=== PATIENT | female | born 1940 | race Hispanic/Latino ===

== ENCOUNTER 2017-05-13 00:21 | Inpatient (IN) | payer MEDICARE ==
[~2017-05-13] VITALS: Ht 170.2 cm; Wt 89.6 kg
[~2017-05-13 00:21] MED LIST: ALBU1.252 IH; ALEN70TA47 PO; ASPI-555 PO; BECL10.62 IH; CIPR-245 PO; DONE5TAB26 PO; FERR-82 PO; FURO20TA4 PO; IPRA4AER IH; LETR2.5T6 PO; PARO10TA71 PO; POTA10TA14 PO; PRAM0.258 PO; PRAV10TA39 PO; UMEC1DIS IH; VARE1TAB22 PO
[2017-05-13] MEDS ORDERED: FUROSEMIDE 10 MG/ML 4ML VIAL ONE (00:44)
[2017-05-13 00:55] LABS: BASOPHILS % (AUTO) 0.6 % (0.0-5.0); EOSINOPHILS % (AUTO) 4.3 % (0.0-8.0); HEMATOCRIT 30.9 % (36-48); LYMPHOCYTES % (AUTO) 19.9 % (21.0-51.0); MEAN CORPUSCULAR HEMOGLOBIN 30.7 pg (27.0-33.0); MEAN CORPUSCULAR HGB CONC 33.1 g/dL (32.0-36.0); MEAN CORPUSCULAR VOLUME 92.9 fL (79-99); MONOCYTES % (AUTO) 8.5 % (3.0-13.0); NEUTROPHILS % (AUTO) 66.7 % (40.0-77.0); PLATELET COUNT (AUTO) 193 K/uL (130-400); RED BLOOD CELL COUNT(AUTO) 3.33 MIL/uL (4.00-5.50); RED CELL DISTRIBUTION WIDTH 14.8 % (11.0-15.5); WHITE BLOOD COUNT (AUTO) 9.9 K/uL (4.8-10.8)
[2017-05-13 01:03] LABS: CREATININE 0.8 mg/dL (0.5-1.5); POTASSIUM 3.9 mmol/L (3.5-5.1)
[2017-05-13 01:16] LABS: ALBUMIN 2.9 g/dL (3.5-5.0); BILIRUBIN,TOTAL 0.3 mg/dL (0.2-1.0); INR 0.89 (0.85-1.15); PARTIAL THROMBOPLASTIN TIME 29.2 SEC (26.3-35.5); PROTHROMBIN TIME 9.4 SEC (9.6-11.6); TOTAL PROTEIN, SERUM 6.8 g/dL (6.0-8.3)
[2017-05-13 02:06] LABS: APPEARANCE,URINE Clear (CLEAR); BILIRUBIN,URINE Negative (NEGATIVE); COLOR,URINE Yellow (YELLOW); GLUCOSE, URINE (UA) Negative (NEGATIVE); KETONES,URINE Negative (NEGATIVE); LEUKOCYTE ESTERASE ,URINE Small (NEGATIVE); NITRATE,URINE Positive (NEGATIVE); OCCULT BLOOD,URINE Negative (NEGATIVE); PROTEIN,URINE Negative (NEGATIVE); UROBILINOGEN,URINE 0.2 mg/dL (0.2-1.0)
[2017-05-13 02:19] LABS: BACTERIA,URINE Few /HPF (None Seen); RBC,URINE None Seen /HPF (0-1); SQUAMOUS EPITHELIAL CELL,UR Rare /LPF (0-2); WBC,URINE 0-1 /HPF (0-1)
[2017-05-13] MEDS ORDERED: VANCOMYCIN 1GM+NS 250ML 250 ML IV ONE (03:56)
[2017-05-13 04:50] VITALS: BP 147/76
[2017-05-13] MEDS ORDERED: HYDRALAZINE HCL 20 MG/ML VIAL IV PRN (06:45)
[2017-05-13] MEDS ORDERED: POTASSIUM CHLORIDE 10% ELIXIR 20 MEQ/15 ML UDCUP PO PRN (06:45)
[2017-05-13] MEDS ORDERED: ACETAMINOPHEN 325 MG TAB PO PRN ×2 (06:45)
[2017-05-13] MEDS ORDERED: ONDANSETRON HCL 4 MG/2 ML VIAL IV PRN (06:45)
[2017-05-13] MEDS ORDERED: POTASSIUM CHLORIDE 20MEQ/100ML 100 ML IV PRN (06:45)
[2017-05-13] MEDS ORDERED: LIDOCAINE HCL-MPF 1% 2ML VIAL IVP PRN (06:45)
[2017-05-13] MEDS ORDERED: NITROGLYCERIN 0.4 MG SL TAB SL PRN (06:45)
[2017-05-13] MEDS ORDERED: POTASSIUM CHLORIDE 20 MEQ ERTAB PO PRN (06:45)
[2017-05-13] MEDS ORDERED: GUAIFENESIN-DM 200/20 MG 10 ML PO PRN (06:45)
[2017-05-13] MEDS ORDERED: VANCOMYCIN 1GM+NS 250ML 250 ML IV SCH ×2 (06:45→10:00)
[2017-05-13] MEDS ORDERED: CEFTRIAXONE 1GM/D5W 50ML 50 ML IV SCH (06:45)
[2017-05-13] MEDS: INSULIN HUMULIN R 100 UNIT/ML 3ML SQ SCH ×4 (07:30→22:06)
[2017-05-13 08:00] VITALS: BP 133/65
[2017-05-13] MEDS: FAMOTIDINE 20MG TAB 20 MG TAB PO SCH ×2 (08:48→21:14)
[2017-05-13] MEDS: CEFTRIAXONE SODIUM 1 GM IVP SCH (08:59)
[2017-05-13] MEDS ORDERED: ENOXAPARIN SODIUM 40 MG/0.4 ML SYRINGE SQ SCH (09:00)
[2017-05-13] MEDS ORDERED: MORPHINE SULFATE 2 MG/ML 1ML SYG IVP PRN (10:00)
[2017-05-13] MEDS: VANCOMYCIN 1.25 GM in SODIUM CHLORIDE 0.9% 250 ML IV SCH ×2 (10:00→22:03)
[2017-05-13] MEDS ORDERED: VANCOMYCIN PROTOCOL PER PHARMACY IV PRN (10:00)
[2017-05-13] MEDS ORDERED: COMPOUND IV REFRIGERATED 1 EACH IVSOLN MISC PRN (10:15)
[2017-05-13] MEDS ORDERED: VANCOMYCIN PROTOCOL PER PHARMACY IV SCH (10:15)
[2017-05-13] MEDS: IPRATROPIUM/ALBUTEROL SULFATE 3 ML SOLUTION IH SCH ×3 (11:23→23:32)
[2017-05-13 11:41] VITALS: BP 152/85
[2017-05-13] MEDS ORDERED: IOPAMIDOL-370 75 ML VIAL IV ONE (11:41)
[2017-05-13] MEDS: FUROSEMIDE 20 MG TABLET PO SCH (11:59)
[2017-05-13] MEDS ORDERED: IPRATROPIUM/ALBUTEROL SULFATE 3 ML SOLUTION IH SCH (12:00)
[2017-05-13] MEDS: ALBUTEROL SULFATE 0.083% 2.5 MG/3 ML INH IH SCH (12:00)
[2017-05-13] MEDS ORDERED: IOPAMIDOL-370 100 ML VIAL IV ONE (15:57)
[2017-05-13 16:00] VITALS: BP 126/71
[2017-05-13] MEDS: BUDESONIDE 0.5 MG/2 ML INH IH SCH (18:54)
[2017-05-13 19:52] VITALS: BP 137/71
[2017-05-13] MEDS: MORPHINE SULFATE 4 MG/1ML SYG IVP PRN (22:07)
[2017-05-13] MEDS ORDERED: OXYMETAZOLINE HCL SPRAY 15 ML BOTTLE EN SCH (22:30)
[2017-05-13] MEDS ORDERED: OXYMETAZOLINE HCL SPRAY 15 ML BOTTLE ONE (23:05)
[2017-05-14] VITALS (7 sets, daily range): BP systolic 117–151; BP diastolic 60–75
[2017-05-14 05:49] LABS: MEAN CORPUSCULAR HEMOGLOBIN 30.3 pg (27.0-33.0); MEAN CORPUSCULAR VOLUME 91.9 fL (79-99); PLATELET COUNT (AUTO) 171 K/uL (130-400); RED BLOOD CELL COUNT(AUTO) 3.27 MIL/uL (4.00-5.50); RED CELL DISTRIBUTION WIDTH 15.4 % (11.0-15.5); WHITE BLOOD COUNT (AUTO) 9.5 K/uL (4.8-10.8)
[2017-05-14] MEDS: ALBUTEROL SULFATE 0.083% 2.5 MG/3 ML INH IH SCH ×3 (06:00→18:00)
[2017-05-14 06:06] LABS: CARBON DIOXIDE 41 mmol/L (21-32); CHLORIDE 102 mmol/L (101-111); CREATINE KINASE MB 0.7 ng/mL (0.5-3.6); CREATINE KINASE, TOTAL 44 U/L (21-232); CREATININE 0.7 mg/dL (0.5-1.5); GLOMERULAR FILTR. RATE CALC 87 mL/min (>60); GLUCOSE,RANDOM 53 mg/dL (70-105); MYOGLOBIN 56 ng/mL (10-92); POTASSIUM 3.8 mmol/L (3.5-5.1); SODIUM SERUM 144 mmol/L (136-145); TROPONIN I < 0.04 ng/mL (0.00-0.06); UREA NITROGEN, BLOOD 18 mg/dL (7-18)
[2017-05-14] MEDS: IPRATROPIUM/ALBUTEROL SULFATE 3 ML SOLUTION IH SCH ×3 (06:48→19:15)
[2017-05-14] MEDS: BUDESONIDE 0.5 MG/2 ML INH IH SCH ×2 (07:08→20:13)
[2017-05-14] MEDS: INSULIN HUMULIN R 100 UNIT/ML 3ML SQ SCH ×4 (07:22→19:57)
[2017-05-14] MEDS: CEFTRIAXONE SODIUM 1 GM IVP SCH (07:22)
[2017-05-14] MEDS: FUROSEMIDE 20 MG TABLET PO SCH (10:12)
[2017-05-14] MEDS: FAMOTIDINE 20MG TAB 20 MG TAB PO SCH ×2 (10:12→19:48)
[2017-05-14] MEDS: VANCOMYCIN 1.25 GM in SODIUM CHLORIDE 0.9% 250 ML IV SCH ×2 (10:13→23:47)
[2017-05-14] MEDS: ACETAMINOPHEN-CODEINE 300/30MG TAB PO PRN (18:42)
[2017-05-14] MEDS: MORPHINE SULFATE 4 MG/1ML SYG IVP PRN (19:54)
[2017-05-15] MEDS: IPRATROPIUM/ALBUTEROL SULFATE 3 ML SOLUTION IH SCH ×4 (02:05→19:02)
[2017-05-15 03:46] VITALS: BP 128/60
[2017-05-15] MEDS: ALBUTEROL SULFATE 0.083% 2.5 MG/3 ML INH IH SCH ×3 (06:00→18:00)
[2017-05-15] MEDS: BUDESONIDE 0.5 MG/2 ML INH IH SCH ×2 (07:16→19:24)
[2017-05-15 08:00] VITALS: BP 141/70
[2017-05-15] MEDS: CEFTRIAXONE SODIUM 1 GM IVP SCH (09:30)
[2017-05-15] MEDS: VANCOMYCIN 1.25 GM in SODIUM CHLORIDE 0.9% 250 ML IV SCH ×3 (09:31→23:03)
[2017-05-15] MEDS: ENOXAPARIN SODIUM 40 MG/0.4 ML SYRINGE SQ SCH (09:31)
[2017-05-15] MEDS: FAMOTIDINE 20MG TAB 20 MG TAB PO SCH ×2 (09:31→20:33)
[2017-05-15] MEDS: ACETAMINOPHEN-CODEINE 300/30MG TAB PO PRN (09:32)
[2017-05-15] MEDS: FUROSEMIDE 20 MG TABLET PO SCH (09:32)
[2017-05-15] MEDS: INSULIN HUMULIN R 100 UNIT/ML 3ML SQ SCH ×4 (09:33→21:43)
[2017-05-15 11:00] VITALS: BP 118/67
[2017-05-15 16:00] VITALS: BP 120/77
[2017-05-15] MEDS ORDERED: MORPHINE SULFATE 4 MG/1ML SYG IVP PRN (16:00)
[2017-05-15 20:00] VITALS: BP 152/75
[2017-05-15] MEDS: MORPHINE SULFATE 4 MG/1ML SYG IVP PRN (20:36)
[2017-05-16] VITALS: BP 163/76
[2017-05-16] MEDS: MORPHINE SULFATE 4 MG/1ML SYG IVP PRN (00:59)
[2017-05-16] MEDS: ACETAMINOPHEN-CODEINE 300/30MG TAB PO PRN ×2 (02:59→08:27)
[2017-05-16 04:00] VITALS: BP 114/56
[2017-05-16 04:56] LABS: MEAN CORPUSCULAR HGB CONC 34.6 g/dL (32.0-36.0); MEAN CORPUSCULAR VOLUME 92.3 fL (79-99); PLATELET COUNT (AUTO) 150 K/uL (130-400); RED BLOOD CELL COUNT(AUTO) 2.92 MIL/uL (4.00-5.50); RED CELL DISTRIBUTION WIDTH 14.9 % (11.0-15.5); WHITE BLOOD COUNT (AUTO) 8.1 K/uL (4.8-10.8)
[2017-05-16] MEDS: ALBUTEROL SULFATE 0.083% 2.5 MG/3 ML INH IH SCH ×3 (06:00→11:18)
[2017-05-16] MEDS: CEFTRIAXONE SODIUM 1 GM IVP SCH (06:34)
[2017-05-16] MEDS: INSULIN HUMULIN R 100 UNIT/ML 3ML SQ SCH (06:35)
[2017-05-16] MEDS: IPRATROPIUM/ALBUTEROL SULFATE 3 ML SOLUTION IH SCH ×3 (06:45→11:19)
[2017-05-16] MEDS: BUDESONIDE 0.5 MG/2 ML INH IH SCH (06:57)
[2017-05-16 08:00] VITALS: BP 139/94
[2017-05-16] MEDS: FAMOTIDINE 20MG TAB 20 MG TAB PO SCH (08:26)
[2017-05-16] MEDS: FUROSEMIDE 20 MG TABLET PO SCH (08:27)
[2017-05-16] MEDS: ENOXAPARIN SODIUM 40 MG/0.4 ML SYRINGE SQ SCH (08:28)
[2017-05-16 11:00] VITALS: BP 120/57
== END 2017-05-16 13:15 | DRG 603 ==
LOC: EDH 00:21 → 3DH 03:58 → OBSVTOIN 03:58
PROVIDERS: ADMIT Internal Medicine; ATTEND Internal Medicine
DX: L03.115 Cellulitis of right lower limb (principal); J96.10 Chronic respiratory failure, unspecified whether with hypoxia or hypercapnia; E44.0 Moderate protein-calorie malnutrition; N39.0 Urinary tract infection, site not specified; Z99.81 Dependence on supplemental oxygen; L03.116 Cellulitis of left lower limb; F02.80 Dementia in other diseases classified elsewhere, unspecified severity, without behavioral disturbance, psychotic disturbance, mood disturbance, and anxiety; J44.9 Chronic obstructive pulmonary disease, unspecified; E11.9 Type 2 diabetes mellitus without complications; I10 Essential (primary) hypertension; E78.5 Hyperlipidemia, unspecified; Z90.12 Acquired absence of left breast and nipple; Z85.3 Personal history of malignant neoplasm of breast; E66.9 Obesity, unspecified; G30.9 Alzheimer's disease, unspecified; R32 Unspecified urinary incontinence; Z68.30 Body mass index [BMI] 30.0-30.9, adult; Z87.891 Personal history of nicotine dependence
CPT/HCPCS: 36415; 71045; 71275; 80048; 80053; 80202; 81001; 82550; 82553; 82948; 83874; 83880; 84484; 85025; 85027; 85378; 85610; 85651; 85730; 87040; 87804; 93005; 93970; 94640; 94664; A4218; J0696; J1650; J1815; J1940; J2270; J3370; J7030; Q9967

== ENCOUNTER 2017-12-24 20:06 | Inpatient (IN) | payer OTHER, MEDICARE ==
[~2017-12-24] VITALS: Ht 172.7 cm; Wt 83.1 kg
[~2017-12-24 20:06] MED LIST changes: -ALBU1.252 IH; -BECL10.62 IH; -CIPR-245 PO; +LISI40TA4 PO; +METF-444 PO; +albute
[2017-12-24 21:29] LABS: BASOPHILS % (AUTO) 0.7 % (0.0-5.0); EOSINOPHILS % (AUTO) 2.1 % (0.0-8.0); HEMATOCRIT 32.7 % (36-48); LYMPHOCYTES % (AUTO) 15.7 % (21.0-51.0); MEAN CORPUSCULAR HEMOGLOBIN 28.3 pg (27.0-33.0); MEAN CORPUSCULAR HGB CONC 32.6 g/dL (32.0-36.0); MEAN CORPUSCULAR VOLUME 86.7 fL (79-99); MONOCYTES % (AUTO) 8.1 % (3.0-13.0); NEUTROPHILS % (AUTO) 73.4 % (40.0-77.0); PLATELET COUNT (AUTO) 195 K/uL (130-400); RED BLOOD CELL COUNT(AUTO) 3.77 MIL/uL (4.00-5.50); RED CELL DISTRIBUTION WIDTH 16.4 % (11.0-15.5); WHITE BLOOD COUNT (AUTO) 9.3 K/uL (4.8-10.8)
[2017-12-24 21:48] LABS: CREATININE 0.8 mg/dL (0.5-1.5)
[2017-12-24 21:53] LABS: BILIRUBIN,TOTAL 0.5 mg/dL (0.2-1.0)
[2017-12-24] MEDS ORDERED: METHYLPREDNISOLONE SOD SUCC 125MG/2ML VIAL ONE (22:26)
[2017-12-24] MEDS ORDERED: IPRATROPIUM/ALBUTEROL SULFATE 3 ML SOLUTION IH ONE (22:46)
[2017-12-24 23:50] VITALS: BP 126/67
[2017-12-25] MEDS ORDERED: LABETALOL 20 MG/4 ML DISP.SYRIN IV PRN (00:45)
[2017-12-25] MEDS ORDERED: ACETAMINOPHEN 325 MG TAB PO PRN (00:45)
[2017-12-25] MEDS: METHYLPREDNISOLONE SOD SUCC 125MG/2ML VIAL IV SCH ×3 (00:45→16:53)
[2017-12-25 02:17] LABS: APPEARANCE,URINE Clear (CLEAR); BILIRUBIN,URINE Negative (NEGATIVE); GLUCOSE, URINE (UA) Negative (NEGATIVE); KETONES,URINE 15 mg/dL (NEGATIVE); LEUKOCYTE ESTERASE ,URINE Moderate (NEGATIVE); NITRATE,URINE Positive (NEGATIVE); OCCULT BLOOD,URINE Negative (NEGATIVE); PROTEIN,URINE POS 2+ (NEGATIVE)
[2017-12-25 02:24] LABS: COLOR,URINE YELLOW (YELLOW)
[2017-12-25] MEDS: LEVOFLOXACIN 500 MG/D5W 100 ML 100 ML IV SCH (02:27)
[2017-12-25] MEDS: CLINDAMYCIN 600 MG/D5% WATER 50 ML IV SCH ×2 (02:27→09:49)
[2017-12-25 02:46] LABS: BACTERIA,URINE Moderate /HPF (None Seen); MUCUS,URINE Few LPF (None Seen); RBC,URINE 0-1 /HPF (0-1); SQUAMOUS EPITHELIAL CELL,UR Few /HPF (0-2)
[2017-12-25] MEDS: IPRATROPIUM/ALBUTEROL SULFATE 3 ML SOLUTION IH SCH ×6 (03:03→21:30)
[2017-12-25 04:00] VITALS: BP 137/76
[2017-12-25 05:41] LABS: BASOPHILS % (AUTO) 0.3 % (0.0-5.0); HEMATOCRIT 34.9 % (36-48); LYMPHOCYTES % (AUTO) 5.5 % (21.0-51.0); MEAN CORPUSCULAR HEMOGLOBIN 28.2 pg (27.0-33.0); MEAN CORPUSCULAR HGB CONC 32.4 g/dL (32.0-36.0); MEAN CORPUSCULAR VOLUME 87.1 fL (79-99); MONOCYTES % (AUTO) 0.8 % (3.0-13.0); NEUTROPHILS % (AUTO) 93.4 % (40.0-77.0); PLATELET COUNT (AUTO) 197 K/uL (130-400); RED BLOOD CELL COUNT(AUTO) 4.01 MIL/uL (4.00-5.50); RED CELL DISTRIBUTION WIDTH 16.1 % (11.0-15.5); WHITE BLOOD COUNT (AUTO) 7.5 K/uL (4.8-10.8)
[2017-12-25 05:51] LABS: BILIRUBIN,TOTAL 0.5 mg/dL (0.2-1.0); CREATININE 0.9 mg/dL (0.5-1.5); POTASSIUM 4.7 mmol/L (3.5-5.1); TOTAL PROTEIN, SERUM 7.2 g/dL (6.0-8.3)
[2017-12-25 05:56] LABS: HEMOGLOBIN A1C 6.9 % (4.0-6.0)
[2017-12-25 07:00] VITALS: BP 142/71
[2017-12-25] MEDS ORDERED: PNEUMOCOCCAL VACCINE POLYVALENT 0.5 ML/VIAL [PPV] IM SCH (07:15)
[2017-12-25] MEDS: ENOXAPARIN SODIUM 40 MG/0.4 ML SYRINGE SQ SCH (09:49)
[2017-12-25] MEDS: PANTOPRAZOLE SODIUM 40 MG TABLET.DR PO SCH (09:49)
[2017-12-25 11:00] VITALS: BP 125/68
[2017-12-25] MEDS ORDERED: GLUCAGON 1MG KIT 1 MG ML IM PRN (13:00)
[2017-12-25] MEDS ORDERED: DEXTROSE 50%-WATER 50 ML DISP.SYRIN IV PRN (13:00)
[2017-12-25 16:00] VITALS: BP 115/65
[2017-12-25] MEDS ORDERED: ALPRAZOLAM 0.5 MG TABLET PO PRN (17:00)
[2017-12-25] MEDS: INSULIN HUMULIN R 100 UNIT/ML 3ML SQ SCH ×3 (17:02→21:44)
[2017-12-25] MEDS ORDERED: VANCOMYCIN PROTOCOL PER PHARMACY IV SCH (17:45)
[2017-12-25] MEDS: ZOSYN 3.375GM+NS 50ML 50 ML IV SCH (18:26)
[2017-12-25 19:00] VITALS: BP 121/71
[2017-12-25] MEDS ORDERED: COMPOUND IV REFRIGERATED 1 EACH IVSOLN MISC PRN (20:30)
[2017-12-25] MEDS: VARENICLINE TARTRATE 1 MG PO SCH (21:00)
[2017-12-25] MEDS: **HM**(Pravastatin Sodium 10 MG PO SCH (21:00)
[2017-12-25] MEDS: DONEPEZIL HCL 5 MG TAB PO SCH (21:39)
[2017-12-25] MEDS: VANCOMYCIN 1.25 GM in SODIUM CHLORIDE 0.9% 250 ML IV SCH (21:39)
[2017-12-25] MEDS: OSELTAMIVIR PHOSPHATE 75 MG CAP PO SCH (21:39)
[2017-12-25] MEDS: PRAMIPEXOLE DI-HCL 0.25 MG TABLET PO SCH (21:39)
[2017-12-25] MEDS: ASPIRIN 81MG TAB.CHEW PO SCH (21:40)
[2017-12-26] VITALS: BP 119/65
[2017-12-26] MEDS: LEVOFLOXACIN 500 MG/D5W 100 ML 100 ML IV SCH (00:36)
[2017-12-26] MEDS: METHYLPREDNISOLONE SOD SUCC 125MG/2ML VIAL IV SCH ×3 (00:38→17:09)
[2017-12-26] MEDS: ZOSYN 3.375GM+NS 50ML 50 ML IV SCH ×3 (01:52→17:09)
[2017-12-26] MEDS: IPRATROPIUM/ALBUTEROL SULFATE 3 ML SOLUTION IH SCH ×6 (03:55→21:04)
[2017-12-26 04:00] VITALS: BP 143/73
[2017-12-26 04:37] LABS: ABG BASE EXCESS 7.2 mmol/L (-2.0-3.0); ABG OXYGEN SATURATION 74.1 % (95.0-99.0); ABG PCO2 51 mmHg (32-45)
[2017-12-26 05:44] LABS: ABG BASE EXCESS 4.5 mmol/L (-2.0-3.0); ABG HCO3 30.9 mmol/L (21.0-28.0); ABG OXYGEN SATURATION 92.7 % (95.0-99.0); ABG PCO2 53 mmHg (32-45)
[2017-12-26 05:55] LABS: HEMATOCRIT 31.5 % (36-48); MEAN CORPUSCULAR HEMOGLOBIN 28.2 pg (27.0-33.0); MEAN CORPUSCULAR HGB CONC 32.4 g/dL (32.0-36.0); MEAN CORPUSCULAR VOLUME 87.2 fL (79-99); PLATELET COUNT (AUTO) 193 K/uL (130-400); RED BLOOD CELL COUNT(AUTO) 3.61 MIL/uL (4.00-5.50); RED CELL DISTRIBUTION WIDTH 16.5 % (11.0-15.5); WHITE BLOOD COUNT (AUTO) 8.1 K/uL (4.8-10.8)
[2017-12-26] MEDS: INSULIN HUMULIN R 100 UNIT/ML 3ML SQ SCH ×6 (06:11→20:29)
[2017-12-26 06:20] LABS: PHOSPHORUS 3.4 mg/dL (2.5-4.9); POTASSIUM 4.4 mmol/L (3.5-5.1); THYROID STIMULATING HORMONE 0.54 uIU/mL (0.36-3.74)
[2017-12-26 07:00] VITALS: BP 157/85
[2017-12-26] MEDS: VARENICLINE TARTRATE 1 MG PO SCH ×2 (09:00→20:29)
[2017-12-26] MEDS: LETROZOLE 2.5 MG PO SCH (09:00)
[2017-12-26] MEDS: VANCOMYCIN 1.25 GM in SODIUM CHLORIDE 0.9% 250 ML IV SCH ×2 (09:45→20:34)
[2017-12-26] MEDS: PANTOPRAZOLE SODIUM 40 MG TABLET.DR PO SCH (09:46)
[2017-12-26] MEDS: LISINOPRIL 40 MG TABLET PO SCH (09:46)
[2017-12-26] MEDS: FERROUS SULFATE 325 MG TABLET.DR PO SCH (09:46)
[2017-12-26] MEDS: POTASSIUM CHLORIDE 10 MEQ/TAB.SA PO SCH (09:47)
[2017-12-26] MEDS: OSELTAMIVIR PHOSPHATE 75 MG CAP PO SCH ×2 (09:47→20:27)
[2017-12-26] MEDS: PAROXETINE HCL 20 MG TABLET PO SCH (09:48)
[2017-12-26] MEDS: FUROSEMIDE 20 MG TABLET PO SCH (09:48)
[2017-12-26] MEDS: ENOXAPARIN SODIUM 40 MG/0.4 ML SYRINGE SQ SCH (09:49)
[2017-12-26 11:00] VITALS: BP 140/69
[2017-12-26] MEDS: UMECLIDINIUM BRM IH SCH (12:00)
[2017-12-26] MEDS: VILANTEROL TR IH SCH (12:00)
[2017-12-26 16:00] VITALS: BP 119/56
[2017-12-26 19:53] VITALS: BP 130/67
[2017-12-26] MEDS: ASPIRIN 81MG TAB.CHEW PO SCH (20:27)
[2017-12-26] MEDS: DONEPEZIL HCL 5 MG TAB PO SCH (20:27)
[2017-12-26] MEDS: PRAMIPEXOLE DI-HCL 0.25 MG TABLET PO SCH (20:27)
[2017-12-26] MEDS: **HM**(Pravastatin Sodium 10 MG PO SCH (20:29)
[2017-12-27] VITALS: BP 134/68
[2017-12-27] MEDS: METHYLPREDNISOLONE SOD SUCC 125MG/2ML VIAL IV SCH ×2 (00:10→09:32)
[2017-12-27] MEDS: LEVOFLOXACIN 500 MG/D5W 100 ML 100 ML IV SCH (00:10)
[2017-12-27] MEDS: IPRATROPIUM/ALBUTEROL SULFATE 3 ML SOLUTION IH SCH ×4 (01:18→14:12)
[2017-12-27] MEDS: ZOSYN 3.375GM+NS 50ML 50 ML IV SCH ×2 (01:32→09:54)
[2017-12-27 04:00] VITALS: BP 137/67
[2017-12-27 04:30] LABS: HEMATOCRIT 30.7 % (36-48); MEAN CORPUSCULAR HEMOGLOBIN 27.7 pg (27.0-33.0); MEAN CORPUSCULAR HGB CONC 31.6 g/dL (32.0-36.0); MEAN CORPUSCULAR VOLUME 87.5 fL (79-99); PLATELET COUNT (AUTO) 162 K/uL (130-400); RED BLOOD CELL COUNT(AUTO) 3.51 MIL/uL (4.00-5.50); RED CELL DISTRIBUTION WIDTH 16.4 % (11.0-15.5); WHITE BLOOD COUNT (AUTO) 9.2 K/uL (4.8-10.8)
[2017-12-27 04:46] LABS: CREATININE 0.9 mg/dL (0.5-1.5); POTASSIUM 4.6 mmol/L (3.5-5.1)
[2017-12-27] MEDS: INSULIN HUMULIN R 100 UNIT/ML 3ML SQ SCH ×2 (06:16→12:27)
[2017-12-27 08:40] VITALS: BP 99/61
[2017-12-27] MEDS: OSELTAMIVIR PHOSPHATE 75 MG CAP PO SCH (09:00)
[2017-12-27] MEDS: VARENICLINE TARTRATE 1 MG PO SCH (09:00)
[2017-12-27] MEDS: LETROZOLE 2.5 MG PO SCH (09:00)
[2017-12-27] MEDS: LISINOPRIL 40 MG TABLET PO SCH (09:33)
[2017-12-27] MEDS: FERROUS SULFATE 325 MG TABLET.DR PO SCH (09:33)
[2017-12-27] MEDS: FUROSEMIDE 20 MG TABLET PO SCH (09:34)
[2017-12-27] MEDS: POTASSIUM CHLORIDE 10 MEQ/TAB.SA PO SCH (09:34)
[2017-12-27] MEDS: ENOXAPARIN SODIUM 40 MG/0.4 ML SYRINGE SQ SCH (09:36)
[2017-12-27] MEDS: PANTOPRAZOLE SODIUM 40 MG TABLET.DR PO SCH (09:53)
[2017-12-27] MEDS: PAROXETINE HCL 20 MG TABLET PO SCH (09:54)
[2017-12-27] MEDS: VANCOMYCIN 1.25 GM in SODIUM CHLORIDE 0.9% 250 ML IV SCH (09:59)
[2017-12-27] MEDS: VILANTEROL TR IH SCH (12:00)
[2017-12-27] MEDS: UMECLIDINIUM BRM IH SCH (12:00)
[2017-12-27 12:03] VITALS: BP 139/71
[2017-12-27 16:20] VITALS: BP 145/66
[2018-01-01] MEDS ORDERED: ALENDRONATE SODIUM 35 MG TAB PO SCH (09:00)
== END 2017-12-27 17:20 | disposition home or self-care (01) | DRG 602 ==
LOC: EDH 20:06 → EDHIP 22:27 → 3DH 23:11
PROVIDERS: ADMIT Internal Medicine Critical Care Medicine; ATTEND Internal Medicine Critical Care Medicine
DX: L03.115 Cellulitis of right lower limb (principal); J96.21 Acute and chronic respiratory failure with hypoxia; J44.1 Chronic obstructive pulmonary disease with (acute) exacerbation; I50.20 Unspecified systolic (congestive) heart failure; D64.9 Anemia, unspecified; E11.65 Type 2 diabetes mellitus with hyperglycemia; E78.5 Hyperlipidemia, unspecified; F02.80 Dementia in other diseases classified elsewhere, unspecified severity, without behavioral disturbance, psychotic disturbance, mood disturbance, and anxiety; F32.9 Major depressive disorder, single episode, unspecified; F41.9 Anxiety disorder, unspecified; G25.81 Restless legs syndrome; G30.9 Alzheimer's disease, unspecified; I11.0 Hypertensive heart disease with heart failure; I48.91 Unspecified atrial fibrillation; Z79.4 Long term (current) use of insulin; Z99.81 Dependence on supplemental oxygen; Z87.01 Personal history of pneumonia (recurrent); Z85.3 Personal history of malignant neoplasm of breast; Z28.21 Immunization not carried out because of patient refusal; Z82.3 Family history of stroke; Z82.0 Family history of epilepsy and other diseases of the nervous system; Z80.42 Family history of malignant neoplasm of prostate; Z80.3 Family history of malignant neoplasm of breast; Z83.3 Family history of diabetes mellitus; Z82.5 Family history of asthma and other chronic lower respiratory diseases; Z82.49 Family history of ischemic heart disease and other diseases of the circulatory system
CPT/HCPCS: 36415; 36600; 70450; 71045; 80048; 80053; 80202; 81001; 82803; 82948; 83036; 83605; 83735; 84100; 84443; 85025; 85027; 87040; 87070; 87076; 87077; 87088; 87186; 93005; 93926; 93970; 94640; 94664; J1650; J1815; J1956; J2543; J2930; J3370; J3490; J7030

== ENCOUNTER 2018-04-23 08:12 | Emergency (ER) | payer OTHER, MEDICARE ==
[~2018-04-23 08:12] MED LIST changes: +ALEN70TA10 PO; -ALEN70TA47 PO; -IPRA4AER IH; -METF-444 PO; -albute
[2018-04-23] MEDS ORDERED: ALBUTEROL SULFATE 0.083% 2.5 MG/3 ML INH IH ONE (08:31)
[2018-04-23] MEDS ORDERED: METHYLPREDNISOLONE SOD SUCC 125MG/2ML VIAL ONE (08:38)
[2018-04-23 09:04] LABS: BASOPHILS % (AUTO) 0.4 % (0.0-5.0); EOSINOPHILS % (AUTO) 0.6 % (0.0-8.0); HEMATOCRIT 32.7 % (36-48); LYMPHOCYTES % (AUTO) 11.9 % (21.0-51.0); MEAN CORPUSCULAR HEMOGLOBIN 28.9 pg (27.0-33.0); MEAN CORPUSCULAR HGB CONC 32.8 g/dL (32.0-36.0); MEAN CORPUSCULAR VOLUME 88.2 fL (79-99); MONOCYTES % (AUTO) 6.5 % (3.0-13.0); NEUTROPHILS % (AUTO) 80.6 % (40.0-77.0); PLATELET COUNT (AUTO) 168 K/uL (130-400); RED BLOOD CELL COUNT(AUTO) 3.71 MIL/uL (4.00-5.50); RED CELL DISTRIBUTION WIDTH 15.1 % (11.0-15.5); WHITE BLOOD COUNT (AUTO) 8.9 K/uL (4.8-10.8)
[2018-04-23 09:12] LABS: CREATININE 0.8 mg/dL (0.5-1.5); POTASSIUM 3.8 mmol/L (3.5-5.1)
[2018-04-23 09:18] LABS: ALBUMIN 2.9 g/dL (3.5-5.0); BILIRUBIN,DIRECT 0.1 mg/dL (0.0-0.3); BILIRUBIN,TOTAL 0.6 mg/dL (0.2-1.0); TOTAL PROTEIN, SERUM 7.1 g/dL (6.0-8.3)
[2018-04-23 09:40] LABS: B-TYPE NATRIURETIC PEPTIDE 212 pg/mL (0-100)
== END 2018-04-23 12:05 | disposition home or self-care (01) ==
LOC: EDH 08:12
DX: J44.1 Chronic obstructive pulmonary disease with (acute) exacerbation (principal); L03.116 Cellulitis of left lower limb; L03.115 Cellulitis of right lower limb; I11.0 Hypertensive heart disease with heart failure; I50.9 Heart failure, unspecified; E11.9 Type 2 diabetes mellitus without complications; F32.9 Major depressive disorder, single episode, unspecified; I48.91 Unspecified atrial fibrillation; G30.9 Alzheimer's disease, unspecified; Z85.3 Personal history of malignant neoplasm of breast; Z79.4 Long term (current) use of insulin; Z90.10 Acquired absence of unspecified breast and nipple; Z72.0 Tobacco use
CPT/HCPCS: 36415; 71045; 80048; 80076; 83880; 84484; 85025; 87804 ×2; 93005; 94640; 96374; 99284; J2930

== ENCOUNTER 2018-07-29 22:09 | Inpatient (IN) | payer OTHER, MEDICARE ==
[~2018-07-29] VITALS: Ht 172.7 cm; Wt 80.9 kg
[2018-07-29 22:38] LABS: ABG BASE EXCESS 5.5 mmol/L (-2.0-3.0); ABG HCO3 33.5 mmol/L (21.0-28.0); ABG OXYGEN SATURATION 93.3 % (95.0-99.0); ABG PCO2 64 mmHg (32-45)
[2018-07-29 23:02] LABS: BASOPHILS % (AUTO) 0.8 % (0.0-5.0); EOSINOPHILS % (AUTO) 1.9 % (0.0-8.0); HEMATOCRIT 32.4 % (36-48); LYMPHOCYTES % (AUTO) 18.6 % (21.0-51.0); MEAN CORPUSCULAR HEMOGLOBIN 27.1 pg (27.0-33.0); MEAN CORPUSCULAR HGB CONC 31.8 g/dL (32.0-36.0); MONOCYTES % (AUTO) 9.9 % (3.0-13.0); NEUTROPHILS % (AUTO) 68.8 % (40.0-77.0); PLATELET COUNT (AUTO) 200 K/uL (130-400); RED BLOOD CELL COUNT(AUTO) 3.82 MIL/uL (4.00-5.50); RED CELL DISTRIBUTION WIDTH 15.7 % (11.0-15.5); WHITE BLOOD COUNT (AUTO) 9.9 K/uL (4.8-10.8)
[2018-07-29 23:10] LABS: CREATININE 0.8 mg/dL (0.5-1.5); POTASSIUM 4.3 mmol/L (3.5-5.1)
[2018-07-29 23:14] LABS: BILIRUBIN,DIRECT 0.1 mg/dL (0.0-0.3); BILIRUBIN,TOTAL 0.2 mg/dL (0.2-1.0); TOTAL PROTEIN, SERUM 6.6 g/dL (6.0-8.3)
[2018-07-29] MEDS ORDERED: ZOSYN 3.375GM+NS 50ML 50 ML IV ONE (23:25)
[2018-07-29] MEDS ORDERED: METOPROLOL TARTRATE 1 MG/ML 5ML VIAL IV ONE (23:25)
[2018-07-29 23:26] LABS: B-TYPE NATRIURETIC PEPTIDE 450 pg/mL (0-100)
[2018-07-30] MEDS ORDERED: ACETAMINOPHEN 325 MG TAB PO PRN (01:00)
[2018-07-30] MEDS ORDERED: POTASSIUM CHLORIDE 10% ELIXIR 20 MEQ/15 ML UDCUP PO PRN (01:00)
[2018-07-30] MEDS ORDERED: ONDANSETRON HCL 4 MG/2 ML VIAL IVP PRN (01:00)
[2018-07-30] MEDS ORDERED: POTASSIUM CHLORIDE 20MEQ/100ML 100 ML IV PRN (01:00)
[2018-07-30] MEDS ORDERED: DILTIAZEM 125MG/125ML NS IV PRN (01:00)
[2018-07-30] MEDS ORDERED: LIDOCAINE HCL-MPF 1% 2ML VIAL IJ PRN (01:00)
[2018-07-30] MEDS ORDERED: FUROSEMIDE 10 MG/ML 4ML VIAL ONE (01:35)
[2018-07-30 01:46] LABS: APPEARANCE,URINE Clear (CLEAR); BILIRUBIN,URINE Negative (NEGATIVE); COLOR,URINE Dark Yellow (YELLOW); GLUCOSE, URINE (UA) TRACE mg/dL (NEGATIVE); KETONES,URINE Negative (NEGATIVE); LEUKOCYTE ESTERASE ,URINE Trace (NEGATIVE); NITRATE,URINE Positive (NEGATIVE); OCCULT BLOOD,URINE Trace (NEGATIVE); PH,URINE 5.5 (5.0-8.0); PROTEIN,URINE POS 1+ mg/dL (NEGATIVE)
[2018-07-30 01:53] LABS: BACTERIA,URINE Many /HPF (None Seen); MUCUS,URINE Few LPF (None Seen); SQUAMOUS EPITHELIAL CELL,UR None Seen /HPF (0-2)
--- NOTE | 2018-07-30 02:00 | NUR ---
Received pt. from ER via stretcher,pt is on Bipap ,no family around,home meds were left at home.Pt. is awake and responsive however pt. has history of Alzheimers.According to pt. she had history of fall from home but unable to recall when exactly she fell.Pt. knows her name and age and where she is but unable to know the time.She denies pain or any discomfort.According to pt. she has provider at home.
[2018-07-30 02:35] VITALS: BP 140/80
[2018-07-30 04:24] LABS: HEMATOCRIT 32.8 % (36-48); MEAN CORPUSCULAR HEMOGLOBIN 27.6 pg (27.0-33.0); MEAN CORPUSCULAR HGB CONC 32.3 g/dL (32.0-36.0); MEAN CORPUSCULAR VOLUME 85.3 fL (79-99); NUCLEATED RED BLOOD CELLS 0.1 % (0.0-0.19); PLATELET COUNT (AUTO) 187 K/uL (130-400); RED BLOOD CELL COUNT(AUTO) 3.84 MIL/uL (4.00-5.50); RED CELL DISTRIBUTION WIDTH 15.6 % (11.0-15.5); WHITE BLOOD COUNT (AUTO) 9.3 K/uL (4.8-10.8)
[2018-07-30 04:56] LABS: CREATININE 0.9 mg/dL (0.5-1.5); POTASSIUM 3.8 mmol/L (3.5-5.1); TROPONIN I 0.05 ng/mL (0.00-0.06)
[2018-07-30] MEDS ORDERED: FUROSEMIDE 10 MG/ML 2ML VIAL IVP SCH (06:00)
[2018-07-30 07:00] VITALS: BP 118/68
[2018-07-30 11:00] VITALS: BP 117/51
[2018-07-30] MEDS: INSULIN HUMULIN R 100 UNIT/ML 3ML SQ SCH ×3 (11:30→20:36)
[2018-07-30 11:33] LABS: CREATINE KINASE, TOTAL 35 U/L (21-232); MYOGLOBIN 58 ng/mL (10-92); TROPONIN I < 0.04 ng/mL (0.00-0.06)
[2018-07-30] MEDS: IPRATROPIUM/ALBUTEROL SULFATE 3 ML SOLUTION IH SCH ×4 (11:37→23:34)
--- NOTE | 2018-07-30 11:41 | NUR ---
RT Demo: Smoking assessment; pt uncooperative in providing complete smoking hx. Pt upset & stated she is not going to answer anymore questions. Addendum: 07/30/18 at 1550 by IRIS ZIMMERMAN RT Amended: Links added.
[2018-07-30] MEDS ORDERED: AZITHROMYCIN 250 MG TABLET PO SCH (12:00)
[2018-07-30] MEDS: PANTOPRAZOLE SODIUM 40 MG TABLET.DR PO SCH (12:17)
[2018-07-30] MEDS: CEFTRIAXONE SODIUM 1 GM IVP SCH (12:17)
[2018-07-30] MEDS: ENOXAPARIN SODIUM 40 MG/0.4 ML SYRINGE SQ SCH (12:19)
[2018-07-30 16:00] VITALS: BP 103/57
--- NOTE | 2018-07-30 17:02 | NUR ---
Nutrition Intervention: Nutrition consult due to lower ext. pitting edema. Pt. admitted with Dx of CHF Exacerbation. Pt. on 75gm CCD Heart Healthy diet with fair p.o. intake, as per pt. Labs reviewed(Alb 3.0). LBM: Not available. SR-15, edematous. Pt. with 2+ Edema to BLE. BMI: 27.9(using UBW), overweight for age. Pt. educated on 2gm Na diet and provided with education material. Pt. verbalized understanding. Recommendations: 1) Continue current diet. 2) 2gm Na diet education given to pt. 3) Continue to monitor pt's nutritional status. 4) Consult RD as nutrition concerns arise. Addendum: 07/30/18 at [address] Amended: Links added.
[2018-07-30 19:00] VITALS: BP 113/56
[2018-07-30] MEDS: ASPIRIN 81 MG EC TAB PO SCH (20:32)
[2018-07-30] MEDS: DONEPEZIL HCL 5 MG TAB PO SCH (20:32)
[2018-07-30] MEDS: SIMVASTATIN 10 MG TABLET PO SCH (20:32)
[2018-07-30 23:00] VITALS: BP 108/61
[2018-07-31 03:00] VITALS: BP 97/61
[2018-07-31 03:45] LABS: BASOPHILS % (AUTO) 0.8 % (0.0-5.0); EOSINOPHILS % (AUTO) 2.2 % (0.0-8.0); HEMATOCRIT 30.4 % (36-48); LYMPHOCYTES % (AUTO) 21.9 % (21.0-51.0); MEAN CORPUSCULAR HEMOGLOBIN 27.3 pg (27.0-33.0); MEAN CORPUSCULAR HGB CONC 32.1 g/dL (32.0-36.0); MONOCYTES % (AUTO) 9.2 % (3.0-13.0); NEUTROPHILS % (AUTO) 65.9 % (40.0-77.0); NUCLEATED RED BLOOD CELLS 0.1 % (0.0-0.19); PLATELET COUNT (AUTO) 204 K/uL (130-400); RED BLOOD CELL COUNT(AUTO) 3.58 MIL/uL (4.00-5.50); RED CELL DISTRIBUTION WIDTH 15.7 % (11.0-15.5); WHITE BLOOD COUNT (AUTO) 7.7 K/uL (4.8-10.8)
[2018-07-31 03:53] LABS: POTASSIUM 3.3 mmol/L (3.5-5.1)
[2018-07-31] MEDS: INSULIN HUMULIN R 100 UNIT/ML 3ML SQ SCH ×4 (06:17→21:00)
[2018-07-31] MEDS: IPRATROPIUM/ALBUTEROL SULFATE 3 ML SOLUTION IH SCH ×4 (06:57→23:45)
[2018-07-31 07:00] VITALS: BP 118/61
[2018-07-31] MEDS: POTASSIUM CHLORIDE 20 MEQ ERTAB PO PRN ×2 (08:22→16:54)
[2018-07-31] MEDS: FERROUS SULFATE 325 MG TABLET.DR PO SCH (08:23)
[2018-07-31] MEDS: PANTOPRAZOLE SODIUM 40 MG TABLET.DR PO SCH (08:23)
[2018-07-31] MEDS: LISINOPRIL 40 MG TABLET PO SCH (08:24)
[2018-07-31] MEDS: POTASSIUM CHLORIDE 10 MEQ/TAB.SA PO SCH (08:25)
[2018-07-31] MEDS: AZITHROMYCIN 250 MG TABLET PO SCH (08:45)
[2018-07-31] MEDS: FUROSEMIDE 20 MG TABLET PO SCH (08:45)
[2018-07-31] MEDS: ENOXAPARIN SODIUM 40 MG/0.4 ML SYRINGE SQ SCH (08:45)
[2018-07-31] MEDS: LETROZOLE 2.5 MG PO SCH (08:45)
[2018-07-31] MEDS: CEFTRIAXONE SODIUM 1 GM IVP SCH (09:56)
[2018-07-31] MEDS: PAROXETINE HCL 20 MG TABLET PO SCH (09:56)
[2018-07-31 11:00] VITALS: BP 115/70
[2018-07-31] MEDS ORDERED: IRON1CAP32 PO (13:21)
[2018-07-31 16:00] VITALS: BP 116/63
[2018-07-31 19:00] VITALS: BP 142/71
--- NOTE | 2018-07-31 20:36 | NUR ---
DC Plan Discussed dcp with patient. Discussed possible SNF per MD's recommendation. Patient refused. [facility] lives w/ son Anthony Gaspar and has provider 2hrs every day x 7 days. No HH services. [facility] has a walker, wheel chair, hospital bed, bedside commode, oxygen, nebulizer, and CPAP. [facility] feels safe returning home to same setup. DCP is back to home w/ family and current outpatient set-up. CD Addendum: 07/31/18 at 2037 by KENYATTA RICHARDSON CM Amended: Links added.
[2018-07-31] MEDS: SIMVASTATIN 10 MG TABLET PO SCH (21:02)
[2018-07-31] MEDS: ASPIRIN 81 MG EC TAB PO SCH (21:02)
[2018-07-31] MEDS: DONEPEZIL HCL 5 MG TAB PO SCH (21:02)
[2018-07-31 23:00] VITALS: BP 125/59
[2018-08-01 03:00] VITALS: BP 115/68
[2018-08-01 06:04] LABS: CREATININE 0.9 mg/dL (0.5-1.5); POTASSIUM 4.2 mmol/L (3.5-5.1)
[2018-08-01] MEDS: INSULIN HUMULIN R 100 UNIT/ML 3ML SQ SCH ×3 (06:22→16:30)
[2018-08-01] MEDS: IPRATROPIUM/ALBUTEROL SULFATE 3 ML SOLUTION IH SCH ×2 (06:47→11:25)
[2018-08-01 07:59] VITALS: BP 125/60
[2018-08-01] MEDS: PAROXETINE HCL 20 MG TABLET PO SCH (09:00)
[2018-08-01] MEDS: LETROZOLE 2.5 MG PO SCH (09:00)
[2018-08-01] MEDS: FERROUS SULFATE 325 MG TABLET.DR PO SCH (10:58)
[2018-08-01] MEDS: AZITHROMYCIN 250 MG TABLET PO SCH (10:59)
[2018-08-01] MEDS: FUROSEMIDE 20 MG TABLET PO SCH (10:59)
[2018-08-01] MEDS: LISINOPRIL 40 MG TABLET PO SCH (10:59)
[2018-08-01] MEDS: PANTOPRAZOLE SODIUM 40 MG TABLET.DR PO SCH (10:59)
[2018-08-01] MEDS: POTASSIUM CHLORIDE 10 MEQ/TAB.SA PO SCH (11:00)
[2018-08-01] MEDS: CEFTRIAXONE SODIUM 1 GM IVP SCH (11:01)
[2018-08-01] MEDS: ENOXAPARIN SODIUM 40 MG/0.4 ML SYRINGE SQ SCH (11:05)
[2018-08-01 11:44] VITALS: BP 132/73
[2018-08-01 15:21] VITALS: BP 110/60
== END 2018-08-01 17:45 | disposition home or self-care (01) | DRG 189 ==
LOC: EDH 22:09 → EDHIP 07-30 00:35 → 2AH 07-30 02:16
PROVIDERS: ADMIT Internal Medicine; ATTEND Internal Medicine
PROC: 5A09357 Assistance with Respiratory Ventilation, Less than 24 Consecutive Hours, Continuous Positive Airway Pressure (ICD-10-PCS; principal; 2018-07-30)
DX: J96.21 Acute and chronic respiratory failure with hypoxia (principal); J44.1 Chronic obstructive pulmonary disease with (acute) exacerbation; I50.32 Chronic diastolic (congestive) heart failure; N39.0 Urinary tract infection, site not specified; J96.22 Acute and chronic respiratory failure with hypercapnia; I11.0 Hypertensive heart disease with heart failure; D64.9 Anemia, unspecified; E11.9 Type 2 diabetes mellitus without complications; E78.5 Hyperlipidemia, unspecified; F02.80 Dementia in other diseases classified elsewhere, unspecified severity, without behavioral disturbance, psychotic disturbance, mood disturbance, and anxiety; G30.9 Alzheimer's disease, unspecified; Z99.81 Dependence on supplemental oxygen; Z79.811 Long term (current) use of aromatase inhibitors; Z85.3 Personal history of malignant neoplasm of breast; Z90.12 Acquired absence of left breast and nipple
CPT/HCPCS: 36415; 36600; 71045; 80048; 80076; 81001; 82550; 82803; 82948; 83735; 83874; 83880; 84484; 85025; 85027; 87040; 93005; 94640; 94660; 94664; 97039; 99291; A4218; G0378; J0696; J1650; J1940; J2543; J3490

== ENCOUNTER 2018-11-07 18:38 | Emergency (ER) | payer OTHER, MEDICARE ==
[~2018-11-07 18:38] MED LIST changes: +IRON1CAP32 PO
[2018-11-07 19:15] LABS: EOSINOPHILS % (AUTO) 0.9 % (0.0-8.0); HEMATOCRIT 30.3 % (36-48); LYMPHOCYTES % (AUTO) 15.6 % (21.0-51.0); MEAN CORPUSCULAR HEMOGLOBIN 27.7 pg (27.0-33.0); MEAN CORPUSCULAR HGB CONC 32.9 g/dL (32.0-36.0); MEAN CORPUSCULAR VOLUME 84.3 fL (79-99); MONOCYTES % (AUTO) 8.5 % (3.0-13.0); PLATELET COUNT (AUTO) 254 K/uL (130-400); RED CELL DISTRIBUTION WIDTH 16.5 % (11.0-15.5); WHITE BLOOD COUNT (AUTO) 9.2 K/uL (4.8-10.8)
[2018-11-07 19:28] LABS: POTASSIUM 3.9 mmol/L (3.5-5.1)
[2018-11-07 19:33] LABS: ALBUMIN 2.8 g/dL (3.5-5.0); BILIRUBIN,TOTAL 0.3 mg/dL (0.2-1.0); TOTAL PROTEIN, SERUM 6.8 g/dL (6.0-8.3)
[2018-11-07 19:39] LABS: INR 0.95 (0.85-1.15); PARTIAL THROMBOPLASTIN TIME 32.6 SEC (26.3-35.5)
[2018-11-07] MEDS ORDERED: TRAMADOL HCL 50 MG TABLET ONE (21:07)
== END 2018-11-07 23:24 | disposition home or self-care (01) ==
LOC: EDH 18:38
DX: S80.811A Abrasion, right lower leg, initial encounter (principal); M25.551 Pain in right hip; I11.0 Hypertensive heart disease with heart failure; I50.9 Heart failure, unspecified; I48.91 Unspecified atrial fibrillation; E11.9 Type 2 diabetes mellitus without complications; E78.5 Hyperlipidemia, unspecified; Z85.3 Personal history of malignant neoplasm of breast; Z98.890 Other specified postprocedural states; Z72.0 Tobacco use; W18.39XA Other fall on same level, initial encounter; Y93.89 Activity, other specified; Y92.89 Other specified places as the place of occurrence of the external cause; Y99.8 Other external cause status
CPT/HCPCS: 36415; 71045; 73502; 73700; 80053; 82550; 84484; 85025; 85610; 85730; 86850; 86900; 86901; 93005

== ENCOUNTER 2018-11-14 08:39 | Emergency (ER) | payer OTHER, MEDICARE ==
[2018-11-14 08:58] LABS: BASOPHILS % (AUTO) 0.4 % (0.0-5.0); HEMATOCRIT 34.2 % (36-48); LYMPHOCYTES % (AUTO) 9.1 % (21.0-51.0); MEAN CORPUSCULAR HEMOGLOBIN 27.4 pg (27.0-33.0); MEAN CORPUSCULAR HGB CONC 32.8 g/dL (32.0-36.0); MEAN CORPUSCULAR VOLUME 83.5 fL (79-99); MONOCYTES % (AUTO) 6.6 % (3.0-13.0); NEUTROPHILS % (AUTO) 82.9 % (40.0-77.0); PLATELET COUNT (AUTO) 283 K/uL (130-400); RED CELL DISTRIBUTION WIDTH 16.6 % (11.0-15.5); WHITE BLOOD COUNT (AUTO) 13.1 K/uL (4.8-10.8)
[2018-11-14 09:11] LABS: CREATININE 0.8 mg/dL (0.5-1.5); POTASSIUM 4.1 mmol/L (3.5-5.1)
[2018-11-14 10:10] LABS: BILIRUBIN,URINE NEGATIVE (NEGATIVE); COLOR,URINE YELLOW (YELLOW); GLUCOSE, URINE (UA) NEGATIVE (NEGATIVE); KETONES,URINE 5 mg/dL (NEGATIVE); LEUKOCYTE ESTERASE ,URINE TRACE (NEGATIVE); NITRATE,URINE POSITIVE (NEGATIVE); OCCULT BLOOD,URINE NEGATIVE (NEGATIVE); PROTEIN,URINE TRACE mg/dL (NEGATIVE)
[2018-11-14 10:16] LABS: APPEARANCE,URINE SLIGHTLY CLOUDY (CLEAR)
[2018-11-14] MEDS ORDERED: EPINEPHRINE 1 MG/ML AMPULE ONE (10:19)
[2018-11-14 10:23] LABS: BACTERIA,URINE Many /HPF (None Seen); RBC,URINE None Seen /HPF (0-1)
[2018-11-14] MEDS ORDERED: SODIUM CHLORIDE 0.9% 500ML 500 ML IV ONE (12:15)
== END 2018-11-14 14:29 | disposition home or self-care (01) ==
LOC: EDH 08:39
DX: S80.01XA Contusion of right knee, initial encounter (principal); S40.012A Contusion of left shoulder, initial encounter; S70.01XA Contusion of right hip, initial encounter; E86.0 Dehydration; E78.5 Hyperlipidemia, unspecified; E11.9 Type 2 diabetes mellitus without complications; I11.0 Hypertensive heart disease with heart failure; I50.9 Heart failure, unspecified; F32.9 Major depressive disorder, single episode, unspecified; I48.91 Unspecified atrial fibrillation; G30.9 Alzheimer's disease, unspecified; F02.80 Dementia in other diseases classified elsewhere, unspecified severity, without behavioral disturbance, psychotic disturbance, mood disturbance, and anxiety; Z85.3 Personal history of malignant neoplasm of breast; Z98.890 Other specified postprocedural states; W06.XXXA Fall from bed, initial encounter; Y93.89 Activity, other specified; Y92.89 Other specified places as the place of occurrence of the external cause; Y99.8 Other external cause status
CPT/HCPCS: 36415; 70450; 72192; 73030; 73502; 73562; 73700; 80048; 81001; 82550; 85025; 96360; 99285; J7040; J0171